=== PATIENT | male | born 1985 | race African-American/Black ===

== ENCOUNTER 2023-10-20 11:29 | Emergency (ER) | payer OTHER ==
[2023-10-20] MEDS ORDERED: KETOROLAC 30 MG/ML INJ ONE (12:13)
--- NOTE | 2023-10-20 12:16 | RAD REPORT ---
EXAM DESCRIPTION: Monica Single View10/20/2023 11:59 am CLINICAL HISTORY: Chest pain COMPARISON: none FINDINGS: The lungs appear clear of acute infiltrate. The heart is normal size IMPRESSION: No acute abnormalities displayed
[2023-10-20 12:19] LABS: Absolute Eosinophils 0.1 K/uL (0-0.5); Absolute Monocytes 0.4 K/uL (0.1-1.3); Eosinophils % 2.2 % (0-4.4); Hematocrit 37.9 % (39.6-49.0); Hemoglobin 12.5 g/dL (13.6-17.9); Lymphocytes % 43.4 % (15.3-44.8); MCHC 32.9 g/dL (32.0-36.0); MCV 100.3 fL (80-100); MPV 9.4 fL (7.6-11.3); Monocytes % 8.1 % (3.3-12.3); Neutrophils % 45.3 % (41.7-73.7); Platelets 166 thou/uL (152-406); RBC Red Blood Cell Count 3.78 M/uL (4.33-5.43); Red Cell Distribution Width 12.8 % (12.1-15.2)
[2023-10-20 12:36] LABS: Albumin/Globulin Ratio 1.3 (1.1-1.8); Anion Gap 4.1 mEq/L (5.0-15.0); Bilirubin Direct 0.2 mg/dL (0-0.2); Bilirubin Indirect, Calculated 0.2 mg/dL (0.2-0.8); Bilirubin Total 0.4 mg/dL (0.2-1.0); Magnesium 2.2 mg/dL (1.6-2.4); Potassium 4.1 mEq/L (3.5-5.1); Troponin High Sensitivity 8.5 pg/mL (<58.9)
--- NOTE | 2023-10-20 12:39 | ER ---
Nurse's Notes [facility] Name: Morgan Cormier Age: 38 yrs Sex: Male : 1985 Arrival Date: 10/20/2023 Time: 11:29 Bed 14 Private MD: Diagnosis: Chest pain, unspecified Presentation: 10/19 11:41 Chief complaint: Patient states: "I've had left sided chest pain since last night. It's mb9 been getting worse.". Coronavirus screen: At this time, the client does not indicate any symptoms associated with coronavirus-19. Ebola Screen: No symptoms or risks identified at this time. Initial Sepsis Screen: Does the patient meet any 2 criteria? No. Patient's initial sepsis screen is negative. Does the patient have a suspected source of infection? No. Patient's initial sepsis screen is negative. Risk Assessment: Do you want to hurt yourself or someone else? Patient reports no desire to harm self or others. Onset of symptoms was October 20, 2023. 11:41 Method Of Arrival: Ambulatory 9 11:41 Acuity: ALECIA 2 mb9 Triage Assessment: 11:42 General: Appears in no apparent distress. Behavior is calm, cooperative. Pain: mb9 Complains of pain in chest. Cardiovascular: Reports chest pain, Patient's skin is warm and dry. Historical: - Allergies: 11:42 No Known Allergies; mb9 - Home Meds: 11:42 None [Active]; mb9 - PMHx: 11:42 None; mb9 - PSHx: 11:42 None; mb9 - Immunization history:: Adult Immunizations up to date. - Infectious Disease History:: Denies. - Social history:: Smoking status: Patient denies any tobacco usage or history of. Screenin:21 [facility] ED Fall Risk Assessment (Adult) History of falling in the last 3 months, me1 including since admission No falls in past 3 months (0 pts) Confusion or Disorientation No (0 pts) Intoxicated or Sedated No (0 pts) Impaired Gait No (0 pts) Mobility Assist Device Used No (0 pt) Altered Elimination No (0 pt) Score/Fall Risk Level 0 - 2 = Low Risk Maintained a safe environment, Provided non-skid footwear, Hourly rounding (assess needs \\T\\ fall precautionary measures) done. Abuse screen: Denies threats or abuse. Nutritional screening: No deficits noted. Tuberculosis screening: No symptoms or risk factors identified. Assessment: 12:21 General: Appears uncomfortable, well groomed, well developed, well nourished, Behavior me1 is calm, cooperative, appropriate for age, Reports left sided chest pain that radiates up the neck that started last night. Pain: Complains of pain in chest Pain radiates to neck Pain currently is 9 out of 10 on a pain scale. Quality of pain is described as sharp, Pain began 1 day ago. Is continuous. Neuro: Level of Consciousness is awake, alert, obeys commands, Oriented to person, place, time, situation, Appropriate for age. Cardiovascular: Capillary refill < 3 seconds Patient's skin is warm and dry. Respiratory: Airway is patent Respiratory effort is even, unlabored, Respiratory pattern is regular, symmetrical. GI: No signs and/or symptoms were reported involving the gastrointestinal system. : No signs and/or symptoms were reported regarding the genitourinary system. EENT: No signs and/or symptoms were reported regarding the EENT system. Derm: Skin is intact, is healthy with good turgor, Skin is pink, warm \\T\\ dry. Musculoskeletal: No signs and/or symptoms reported regarding the musculoskeletal system. Vital Signs: 11:41 BP 122 / 86; Pulse 74; Resp 16; Temp 98; Pulse Ox 100% ; Weight 70.31 kg; Height 6 ft. mb9 1 in. ; Pain 9/10; 12:25 BP 129 / 84; Pulse 57; Resp 15; Pulse Ox 98% on R/A; me1 13:06 BP 126 / 90; Pulse 58; Resp 16; Temp 98.1(O); Pulse Ox 95% ; Pain 0/10; me1 11:41 Body Mass Index 20.45 (70.31 kg, 185.42 cm) mb9 11:41 Pain Scale: Adult mb9 13:06 Pain Scale: Adult me1 ED Course: 11:32 Patient arrived in ED. ra3 11:36 Matthew Barber MD is Attending Physician. sp3 11:38 EKG done, by ED staff, reviewed by Matthew Barber MD. mb9 11:41 Triage completed. mb9 11:42 Arm band placed on. mb9 12:01 XRAY Chest (1 view) In Process Unspecified. EDMS 12:10 Orly Cui, RN is Primary Nurse. me1 12:11 Initial lab(s) drawn, by me, sent to lab. Inserted saline lock: 20 gauge in right wv1 antecubital area, using aseptic technique. 12:11 Basic Metabolic Panel Sent. me1 12:11 CBC with Diff Sent. me1 12:11 D-Dimer Sent. me1 12:11 LFT's Sent. me1 12:11 Magnesium Sent. me1 12:11 NT PRO-BNP Sent. me1 12:11 Troponin HS Sent. me1 12:21 No provider procedures requiring assistance completed. O2 via room air. me1 12:21 Patient has correct armband on for positive identification. Bed in low position. Call me1 light in reach. Side rails up X 1. Provided Education on: POC. Verbalized understanding. . Client placed on continuous cardiac and pulse oximetry monitoring. NIBP monitoring applied. patient monitor on. Pulse ox on. NIBP on. 13:07 IV discontinued, intact, bleeding controlled, No redness/swelling at site. Pressure wv1 dressing applied. Administered Medications: 12:18 Drug: Ketorolac IVP 30 mg IVP once Route: IVP; Site: right antecubital; wv1 13:01 Follow up: Response: No adverse reaction; Pain is decreased me1 Medication: 12:21 VIS not applicable for this client. wv1 Outcome: 12:39 Discharge ordered by . sp3 13:07 Discharged to home ambulatory, wv1 13:07 Condition: stable 13:07 Discharge instructions given to patient, Instructed on discharge instructions, follow up and referral plans. Demonstrated understanding of instructions, follow-up care, 13:08 Patient left the ED. wv1 Signatures: Dispatcher [employer] Matthew Greco MD MD sp3 Yolanda Staley RN RN mb9 Orly Cui, RN RN me1 Cate Bingham ra3
--- NOTE | 2023-10-20 12:39 | EDPHYS ---
Physician Documentation [facility] Name: Morgan Cormier Age: 38 yrs Sex: Male : 1985 Arrival Date: 10/20/2023 Time: 11:29 Bed 14 Private MD: ED Physician Matthew Barber HPI: 10/19 11:53 This 38 yrs old Black Male presents to ER via Ambulatory with complaints of Chest Pain. sp3 11:53 38-year-old male with no significant past medical history presents with left-sided sp3 chest pain since yesterday while at work. Patient states that he "works out a lot". Pain is radiating into his shoulder and is worse when he moves. He denies headache, jaw pain, left arm pain or tingling, shortness of breath, back pain, abdominal pain, vomiting, diarrhea, nausea, syncope, near syncope, or any other signs or symptoms on ROS at this time.. Historical: - Allergies: 11:42 No Known Allergies; mb9 - Home Meds: 11:42 None [Active]; mb9 - PMHx: 11:42 None; mb9 - PSHx: 11:42 None; mb9 - Immunization history:: Adult Immunizations up to date. - Infectious Disease History:: Denies. - Social history:: Smoking status: Patient denies any tobacco usage or history of. ROS: 11:53 Constitutional: Negative for fever, chills, and weight loss, Eyes: Negative for injury, sp3 pain, redness, and discharge, ENT: Negative for injury, pain, and discharge, Neck: Negative for injury, pain, and swelling, Respiratory: Negative for shortness of breath, cough, wheezing, and pleuritic chest pain, Abdomen/GI: Negative for abdominal pain, nausea, vomiting, diarrhea, and constipation, Back: Negative for injury and pain, MS/Extremity: Negative for injury and deformity, Skin: Negative for injury, rash, and discoloration, Neuro: Negative for headache, weakness, numbness, tingling, and seizure, Psych: Negative for depression, anxiety, suicide ideation, homicidal ideation, and hallucinations, Allergy/Immunology: Negative for hives, rash, and allergies, Endocrine: Negative for neck swelling, polydipsia, polyuria, polyphagia, and marked weight changes, 11:53 All other systems are negative, Exam: 11:54 Constitutional: This is a well developed, well nourished patient who is awake, alert, sp3 and in no acute distress. Head/Face: Normocephalic, atraumatic. Eyes: Pupils equal round and reactive to light, extra-ocular motions intact. Lids and lashes normal. Conjunctiva and sclera are non-icteric and not injected. Cornea within normal limits. Periorbital areas with no swelling, redness, or edema. Neck: Trachea midline, no thyromegaly or masses palpated, and no cervical lymphadenopathy. Supple, full range of motion without nuchal rigidity, or vertebral point tenderness. No Meningismus. Cardiovascular: Regular rate and rhythm with a normal S1 and S2. No gallops, murmurs, or rubs. Normal PMI, no JVD. No pulse deficits. Respiratory: Lungs have equal breath sounds bilaterally, clear to auscultation and percussion. No rales, rhonchi or wheezes noted. No increased work of breathing, no retractions or nasal flaring. Abdomen/GI: Soft, non-tender, with normal bowel sounds. No distension or tympany. No guarding or rebound. No evidence of tenderness throughout. Back: No spinal tenderness. No costovertebral tenderness. Full range of motion. Skin: Warm, dry with normal turgor. Normal color with no rashes, no lesions, and no evidence of cellulitis. MS/ Extremity: Pulses equal, no cyanosis. Neurovascular intact. Full, normal range of motion. Neuro: Awake and alert, GCS 15, oriented to person, place, time, and situation. Cranial nerves II-XII grossly intact. Motor strength 5/5 in all extremities. Sensory grossly intact. Cerebellar exam normal. Normal gait. Psych: Awake, alert, with orientation to person, place and time. Behavior, mood, and affect are within normal limits. 11:54 Chest/axilla: Pain is reproducible in the left chest.. 11:54 ECG was reviewed by the Attending Physician. EKG demonstrates normal sinus rhythm at 60 sp3 bpm with normal intervals, normal QRS, normal axis, J-point elevation without significant ST's ST changes. Vital Signs: 11:41 BP 122 / 86; Pulse 74; Resp 16; Temp 98; Pulse Ox 100% ; Weight 70.31 kg; Height 6 ft. mb9 1 in. ; Pain 9/10; 12:25 BP 129 / 84; Pulse 57; Resp 15; Pulse Ox 98% on R/A; me1 13:06 BP 126 / 90; Pulse 58; Resp 16; Temp 98.1(O); Pulse Ox 95% ; Pain 0/10; me1 11:41 Body Mass Index 20.45 (70.31 kg, 185.42 cm) mb9 11:41 Pain Scale: Adult mb9 13:06 Pain Scale: Adult me1 MDM: 11:39 Patient medically screened. sp3 11:54 Data reviewed: vital signs, nurses notes, lab test result(s), EKG, radiologic studies. sp3 11:54 ED course: 38-year-old male with no past medical history with probable musculoskeletal sp3 chest pain from working out. I am not highly suspicious for acute coronary syndrome, PE, TAD, or any other critical pathology. Workup will include EKG which does not show any significant findings, chest x-ray and laboratory values including troponin and D-dimer. Given the length of his history single troponin should rule patient out. If workup is negative we will safely discharge him home with PCP follow-up as needed.. 12:39 ED course: All workup is negative including troponin and D-dimer. We will safely sp3 discharge patient home at this time.. 10/19 11:39 Order name: Basic Metabolic Panel; Complete Time: 12:38 3 10/19 11:39 Order name: CBC with Diff; Complete Time: 12:38 3 10/19 11:39 Order name: D-Dimer; Complete Time: 12:38 3 10/19 11:39 Order name: LFT's; Complete Time: 12:38 3 10/19 11:39 Order name: Magnesium; Complete Time: 12:38 3 10/19 11:39 Order name: NT PRO-BNP; Complete Time: 12:38 3 10/19 11:39 Order name: Troponin HS; Complete Time: 12:38 3 10/19 11:39 Order name: XRAY Chest (1 view); Complete Time: 12:20 3 10/19 11:39 Order name: Cardiac monitoring; Complete Time: 12:11 3 10/19 11:39 Order name: EKG - Nurse/Tech; Complete Time: 12:11 sp3 10/19 11:39 Order name: IV Saline Lock; Complete Time: 12:11 sp3 10/19 11:39 Order name: Labs collected and sent; Complete Time: 12:11 sp3 10/19 11:39 Order name: O2 Per Protocol; Complete Time: 12:11 sp3 10/19 11:39 Order name: O2 Sat Monitoring; Complete Time: 12:11 sp3 Administered Medications: 12:18 Drug: Ketorolac IVP 30 mg IVP once Route: IVP; Site: right antecubital; me1 13:01 Follow up: Response: No adverse reaction; Pain is decreased me1 Disposition Summary: 10/20/23 12:39 Discharge Ordered Notes: Location: Home sp3 Condition: Stable sp3 Diagnosis - Chest pain, unspecified sp3 Followup: sp3 - With: Private Physician - When: Upon discharge from the Emergency Department - Reason: Continuance of care Discharge Instructions: - Discharge Summary Sheet sp3 - Nonspecific Chest Pain, Adult sp3 Forms: - Medication Reconciliation Form sp3 - Thank You Letter sp3 - Antibiotic Education sp3 - Prescription Opioid Use sp3 - Patient Portal Instructions sp3 - Leadership Thank You Letter sp3 Signatures: Dispatcher [employer] Matthew Greco MD MD sp3 Yolanda Staley RN RN mb9 Orly Cui RN RN me1
[2023-10-21 02:37] VITALS: BP 126/90; TEMP 98.1; O2SAT 95
== END 2023-10-20 13:08 | disposition home or self-care (01) ==
LOC: ER 11:29
DX: R07.9 Chest pain, unspecified (principal)
CPT/HCPCS: 36415; 71045; 80048; 80076; 83735; 83880; 84484; 85025; 85379; 93005; 96374; 99285

== ENCOUNTER 2025-02-12 19:55 | Emergency (ER) | payer OTHER ==
--- OUTSIDE RECORDS SUMMARY | 2025-02-12 19:58 | XMS REPORT | Continuity of Care Document ---
Author Name Unknown Address [address] [facility] [address] [place] [address] [facility] Address 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 Ordering Clinician Indication Dosage Frequency Signature (SIG) Comments Components Source CETIRIZINE 10MG 11-09 00:00: 00 Yes [id number] Spencer Barrera CETIRIZINE 10MG 09-14 00:00: 00 Yes [id number] Spencer F Bruce azithromyci n 250 mg tablet 12-15 00:00: 00 Yes mg Spencer F Bruce azithromyci n 250 mg tablet 09-02 00:00: 00 Yes 4mg Spencer Mitch Barrera Vital Signs Vital Name Observation Time Observation Value Comments S ourcesar BP Systolic 2024-11-29 10:46:00 125 mm[Hg] Step hen F Bruce BP Diastolic 2024-11-29 10:46:00 76 mm[Hg] Cristian phen F Bruce Weight Measured 2024-11-29 10:46:00 161.60 pounds Spencer F Bruce Height Measured 2024-11-29 10:46:00 74.00 inches Spencer F Bruce Body Temperature 2024-11-29 10:46:00 98.20 degrees Spencer F Bruce Heart Rate 2024-11-29 10:46:00 62.00 /min Angie en F Bruce Respiratory Rate 2024-11-29 10:46:00 19.00 /min Spencer F Bruce Heart Rate 2024-10-18 11:03:00 95.00 /min Angie en F Bruce Respiratory Rate 2024-10-18 11:03:00 18.00 /min Spencer F Bruce BP Systolic 2024-10-18 11:03:00 112 mm[Hg] Step hen F Bruce BP Diastolic 2024-10-18 11:03:00 83 mm[Hg] Cristian phen F Bruce Weight Measured 2024-10-18 11:03:00 153.00 pounds Spencer F Bruce Height Measured 2024-10-18 11:03:00 74.00 inches Spencer F Bruce Body Temperature 2024-10-18 11:03:00 98.30 degrees Spencer F Bruce BP Systolic 2024-01-20 16:26:00 100 mm[Hg] Step hen F Bruce BP Diastolic 2024-01-20 16:26:00 62 mm[Hg] Cristian phen F Bruce Weight Measured 2024-01-20 16:26:00 160.00 pounds Spencer F Bruce Height Measured 2024-01-20 16:26:00 74.00 inches Spencer F Bruce Body Temperature 2024-01-20 16:26:00 98.20 degrees Spencer F Bruce Heart Rate 2024-01-20 16:26:00 61.00 /min Angie en F Bruce Respiratory Rate 2024-01-20 16:26:00 18.00 /min Spencer F Bruce BP Systolic 2018-09-29 17:12:00 115 mm[Hg] Step hen F Bruce BP Diastolic 2018-09-29 17:12:00 67 mm[Hg] Cristian phen F Bruce Weight Measured 2018-09-29 17:12:00 157.40 pounds Spencer F Bruce Height Measured 2018-09-29 17:12:00 74.00 inches Spencer F Bruce Body Temperature 2018-09-29 17:12:00 98.10 degrees Spencer F Bruce Heart Rate 2018-09-29 17:12:00 68.00 /min Angie en F Bruce Respiratory Rate 2018-09-29 17:12:00 18.00 /min Spencer F Bruce BP Systolic 2016-12-15 14:46:00 124 mm[Hg] Step hen F Bruce BP Diastolic 2016-12-15 14:46:00 74 mm[Hg] Cristian phen F Bruce Weight Measured 2016-12-15 14:46:00 163.60 pounds Spencer F Bruce Height Measured 2016-12-15 14:46:00 74.00 inches Spencer F Bruce Body Temperature 2016-12-15 14:46:00 98.40 degrees Spencer F Bruce Heart Rate 2016-12-15 14:46:00 65.00 /min Angie en F Bruce Respiratory Rate 2016-12-15 14:46:00 16.00 /min Spencer F Bruce BP Systolic 2015-08-19 15:40:00 149 mm[Hg] Step hen F Bruce BP Diastolic 2015-08-19 15:40:00 80 mm[Hg] Cristian phen F Bruce Weight Measured 2015-08-19 15:40:00 161.80 pounds Spencer F Bruce Height Measured 2015-08-19 15:40:00 73.23 inches Spencer F Bruce Body Temperature 2015-08-19 15:40:00 98.40 degrees Spencer F Bruce Heart Rate 2015-08-19 15:40:00 74.00 /min Angie en F Bruce Respiratory Rate 2015-08-19 15:40:00 15.00 /min Spencer F Bruce BP Systolic 2015-08-19 15:34:00 149 mm[Hg] Step hen F Bruce BP Diastolic 2015-08-19 15:34:00 80 mm[Hg] Cristian phen F Bruce Weight Measured 2015-08-19 15:34:00 161.80 pounds Spencer F Bruce Height Measured 2015-08-19 15:34:00 73.23 inches Spencer F Bruce Body Temperature 2015-08-19 15:34:00 98.40 degrees Spencer F Bruce Heart Rate 2015-08-19 15:34:00 74.00 /min Angie en F Bruce Respiratory Rate 2015-08-19 15:34:00 15.00 /min Spencer F Bruce Encounters Start Date/Time End Date/Time Encounter Type Admission Type Attending [facility] Care Department Encounter ID Source 2024-11-29 10:45:35 2024-11-29 10:45:35 Outpatient [facility] [id number] Spencer Barrera 2024-11-29 00:00:00 2024-11-29 00:00:00 Outpatient Visit [facility] [id number] Spencer Barrera 2024-10-18 10:56:03 2024-10-18 10:56:03 Outpatient [facility] [id number] Spencer Barrera 2024-10-18 00:00:00 2024-10-18 00:00:00 Outpatient Visit [facility] [id number] Spencer Barrera 2024-01-20 16:26:19 2024-01-20 16:26:19 Outpatient [facility] [id number] Spencer Barrera 2024-01-20 00:00:00 2024-01-20 00:00:00 Outpatient Visit [facility] [id number] Spencer Barrera Results Test Description Test Time Test Comments Results Result Co mments Source Spencer BarreraCOMPREHENSIVE METABOLIC [id number] 00:00:00* Test Item Value Reference Range Interpretation Comme nts GLUCOSE (test code = 2345-7) 122 mg/dL UREA NITROGEN (BUN) (test code = 3094-0) 12 mg/dL CREATININE (test code = 2160-0) 1.18 mg/dL EGFR (test code = 53961-5) 80 mL/min/1.73m2 BUN/CREATININE RATIO (test code = 3097-3) SEE NOTE: (calc) SODIUM (test code = 2951-2) 142 mmol/L POTASSIUM (test code = 2823-3) 4.5 mmol/L CHLORIDE (test code = 2075-0) 103 mmol/L CARBON DIOXIDE (test code = 2027-9) 25 mmol/L CALCIUM (test code = 76852-7) 9.8 mg/dL PROTEIN, TOTAL (test code = 2885-2) 7.1 g/dL ALBUMIN (test code = 1751-7) 4.7 g/dL GLOBULIN (test code = 22272-9) 2.4 g/dL(calc) ALBUMIN/GLOBULIN RATIO (test code = 1759-0) 2.0 (calc) BILIRUBIN, TOTAL (test code = 1975-2) 0.4 mg/dL ALKALINE PHOSPHATASE (test code = 6768-6) 76 U/L AST (test code = 1920-8) 21 U/L ALT (test code = 1742-6) 18 U/L Spencer BarreraHEMOGLOBIN [id number] 00:00:00* Test Item Value Reference Range Interpretation Comme nts HEMOGLOBIN A1c (test code = 4548-4) 5.9 % Spencer BarreraLIPID [id number] 00:00:00* Test Item Value Reference Range Interpretation Comme nts CHOLESTEROL, TOTAL (test cod e = 2093-3) 195 mg/dL HDL CHOLESTEROL (test code = 2085-9) 88 mg/dL TRIGLYCERIDES (test code = 2571-8) 40 mg/dL LDL-CHOLESTEROL (test code = 34504-6) 95 mg/dL(calc) CHOL/HDLC RATIO (test code = 9830-1) 2.2 (calc) NON HDL CHOLESTEROL (test code = 29565-3) 107 mg/dL(calc) Specner SandovalAMYDIA, AMPLIFIED, [id number] 00:00:00* Test Item Value Reference Range Interpretation Comme nts CHLAMYDIA, TMA (test code = 25606) NEGATIVE Spencer BarreraGC, AMPLIFIED, [id number] 00:00:00* Test Item Value Reference Range Interpretation Comme nts GONORRHEA, TMA (test code = 81490) NEGATIVE Spencer BarreraCULTURE, [id number] 00:00:00* Test Item Value Reference Range Interpretation Comme nts CULTURE, URINE (test code = 85864) SPECIMEN NUMBER: [id number] Spencer BarreraCHLAMYDIA, AMPLIFIED, [id number] 00:00:00* Test Item Value Reference Range Interpretation Comme nts CHLAMYDIA, TMA (test code = 21540) NEGATIVE Spencer BarreraGC, AMPLIFIED, [id number] 00:00:00* Test Item Value Reference Range Interpretation Comme nts GONORRHEA, TMA (test code = 92755) NEGATIVE Spencer BarreraCULTURE, [id number] 00:00:00* Test Item Value Reference Range Interpretation Comme nts CULTURE, URINE (test code = 31492) SPECIMEN NUMBER: [id number] Spencer BarreraCHLAMYDIA, AMPLIFIED, [id number] 00:00:00* Test Item Value Reference Range Interpretation Comme nts CHLAMYDIA, TMA (test code = 48548) NEGATIVE Spencer BarreraGC, AMPLIFIED, [id number] 00:00:00* Test Item Value Reference Range Interpretation Comme nts GONORRHEA, TMA (test code = 37064) NEGATIVE Spencer BarreraCULTURE, [id number] 00:00:00* Test Item Value Reference Range Interpretation Comme nts CULTURE, URINE (test code = 25059) SPECIMEN NUMBER: [id number] Spencer BarreraGC, AMPLIFIED, [id number] 00:00:00* Test Item Value Reference Range Interpretation Comme nts GONORRHEA, TMA (test code = 74479) NEGATIVE Spnecer BarreraCHLAMYDIA, AMPLIFIED, [id number] 00:00:00* Test Item Value Reference Range Interpretation Comme nts CHLAMYDIA, TMA (test code = 38001) POSITIVE Spencer BarreraGC, AMPLIFIED, [id number] 00:00:00* Test Item Value Reference Range Interpretation Comme nts GONORRHEA, TMA (test code = 84243) NEGATIVE Spencer BarreraCHLAMYDIA, AMPLIFIED, [id number] 00:00:00* Test Item Value Reference Range Interpretation Comme nts CHLAMYDIA, TMA (test code = 03577) POSITIVE Spencer BarreraGC, AMPLIFIED, [id number] 00:00:00* Test Item Value Reference Range Interpretation Comme nts GONORRHEA, TMA (test code = 09282) NEGATIVE Spencer BarreraCHLAMYDIA, AMPLIFIED, [id number] 00:00:00* Test Item Value Reference Range Interpretation Comme nts CHLAMYDIA, TMA (test code = 45342) POSITIVE Spencer BarreraHIV AB/AG COMBO RFLX [id number] 00:00:00* Test Item Value Reference Range Interpretation Comme nts HIV AB/AG COMBO RFLX CONF (t est code = 3514) NON-REACTIVE Spencer [id number] 00:00:00* Test Item Value Reference Range Interpretation Comme nts RPR RESULT (test code = 3501) NON-REACTIVE RPR TITER (test code = 3500) NOT INDIC. TITER Spencer BarreraACUTE HEPATITIS [id number] 00:00:00* Test Item Value Reference Range Interpretation Comme nts HEPATITIS A IgM (test code = 61027) NON-REACTIVE HEPATITIS B CORE IgM (test c ode = 4644) NON-REACTIVE HEPATITIS B SURF AG (test co de = 2739) NON-REACTIVE HEPATITIS C ANTIBODY (test c ode = 4675) NON-REACTIVE INTERPRETATION HEPATITIS A: (test code = 2552) (NOTE) INTERPRETATION HEPATITIS B: (test code = 84392) (NOTE) INTERPRETATION HEPATITIS C: (test code = 01540) (NOTE) Spencer Meyer AustinHIV AB/AG COMBO RFLX [id number] 00:00:00* Test Item Value Reference Range Interpretation Comme nts HIV AB/AG COMBO RFLX CONF (t est code = 3514) NON-REACTIVE Spencer [id number] 00:00:00* Test Item Value Reference Range Interpretation Comme nts RPR RESULT (test code = 3501) NON-REACTIVE RPR TITER (test code = 3500) NOT INDIC. TITER Spencer BarreraACUTE HEPATITIS [id number] 00:00:00* Test Item Value Reference Range Interpretation Comme nts HEPATITIS A IgM (test code = 28900) NON-REACTIVE HEPATITIS B CORE IgM (test c ode = 4644) NON-REACTIVE HEPATITIS B SURF AG (test co de = 2739) NON-REACTIVE HEPATITIS C ANTIBODY (test c ode = 4675) NON-REACTIVE INTERPRETATION HEPATITIS A: (test code = 2552) (NOTE) INTERPRETATION HEPATITIS B: (test code = 55568) (NOTE) INTERPRETATION HEPATITIS C: (test code = 82998) (NOTE) Spencer Meyer AustinHIV AB/AG COMBO RFLX [id number] 00:00:00* Test Item Value Reference Range Interpretation Comme nts HIV AB/AG COMBO RFLX CONF (t est code = 3514) NON-REACTIVE Spencer Meyer [id number] 00:00:00* Test Item Value Reference Range Interpretation Comme nts RPR RESULT (test code = 3501) NON-REACTIVE RPR TITER (test code = 3500) NOT INDIC. TITER Spencer BarreraACUTE HEPATITIS [id number] 00:00:00* Test Item Value Reference Range Interpretation Comme nts HEPATITIS A IgM (test code = 88935) NON-REACTIVE HEPATITIS B CORE IgM (test c ode = 4644) NON-REACTIVE HEPATITIS B SURF AG (test co de = 2739) NON-REACTIVE HEPATITIS C ANTIBODY (test c ode = 4675) NON-REACTIVE INTERPRETATION HEPATITIS A: (test code = 2552) (NOTE) INTERPRETATION HEPATITIS B: (test code = 49327) (NOTE) INTERPRETATION HEPATITIS C: (test code = 74803) (NOTE) Spencer Barrera Notes Date/Time Note Provider Source Spencer Barrera [facility]2025-04-17 00:00:00 Spencer Howard [facility]2024-07-19 00:00:00 Spencer Howard [facility]
[2025-02-12] MEDS ORDERED: CEPHALEXIN 250 MG CAP ONE (20:50)
[2025-02-12] MEDS ORDERED: KETOROLAC 10 MG TAB ONE (20:50)
[2025-02-12] MEDS ORDERED: LIDOCAINE 1% 20 ML MDV ONE ×2 (20:50→21:04)
[2025-02-12] MEDS ORDERED: SMZ./TMP. 800/160 MG TABLET ONE (20:51)
[2025-02-12] MEDS ORDERED: ONDANSETRON 4 MG (ODT) TAB ONE (20:51)
[2025-02-12] MEDS ORDERED: TRAMADOL HCL 50 MG TAB ONE (20:52)
[2025-02-12 20:53] LABS: Hematocrit 41.5 % (39.6-49.0); Hemoglobin 14.2 g/dL (13.6-17.9); MCV 97.4 fL (80-100); RBC Red Blood Cell Count 4.27 M/uL (4.33-5.43); White Blood Count 5.00 thou/uL (4.3-10.9)
[2025-02-12 20:54] LABS: Absolute Lymphocytes (CBC) 1.9 K/uL (0.7-4.9); MCH 33.4 pg (27.0-35.0); MCHC 34.3 g/dL (32.0-36.0); MPV 9.9 fL (7.6-11.3); Nucleated RBC Absolute Count 0.0 (0-0); Nucleated Red Blood Cells % 0.1 % (0-0)
[2025-02-12 21:08] LABS: Anion Gap 5.9 mEq/L (5.0-15.0); BUN Blood Urea Nitrogen 15.0 mg/dL (7-18); Glucose Level 107.0 mg/dL (74-106); Potassium 3.9 mEq/L (3.5-5.1)
--- NOTE | 2025-02-12 22:02 | EDPHYS ---
Physician Documentation [facility] Name: Morgan Cormier Age: 39 yrs Sex: Male : 1985 Arrival Date: 02/12/2025 Time: 19:55 Bed 17 Private MD: ED Physician Rush Rivero HPI: 02/12 20:06 This 39 yrs old Black Male presents to ER via Unassigned with complaints of Wound Check sp4 - left foot. 22:05 Patient presents with acute abscess of the left foot developing in the last 7 days.. sp4 Historical: - Allergies: 20:17 No Known Allergies; al5 - PMHx: 20:17 None; al5 - PSHx: 20:17 None; al5 - Immunization history:: Adult Immunizations up to date. - Infectious Disease History:: Denies. - Social history:: Smoking status: Patient denies any tobacco usage or history of. - Family history:: not pertinent. ROS: 22:05 Constitutional: Negative for fever, chills, and weight loss, positive for left foot sp4 abscess with tenderness pain swelling and purulent induration 22:05 All other systems are negative, Exam: 22:05 Constitutional: This is a well developed, well nourished patient who is awake, alert, sp4 and in no acute distress. Head/Face: Normocephalic, atraumatic. Eyes: Pupils equal round and reactive to light, extra-ocular motions intact. Lids and lashes normal. Conjunctiva and sclera are not injected. Cornea within normal limits. Periorbital areas with no swelling, redness, or edema. ENT: Nares patent. No nasal discharge, no septal abnormalities noted. Tympanic membranes are normal and external auditory canals are clear. Oropharynx with no redness, swelling, or masses, exudates, or evidence of obstruction, uvula midline. Mucous membranes moist. Neck: Trachea midline, no thyromegaly or masses palpated, and no cervical lymphadenopathy. Supple, full range of motion without nuchal rigidity, or vertebral point tenderness. Chest/axilla: Normal chest wall appearance and motion. Nontender with no deformity. No lesions are appreciated. Cardiovascular: Regular rate and rhythm with a normal S1 and S2. No gallops, murmurs, or rubs. No pulse deficits. Respiratory: Lungs have equal breath sounds bilaterally, clear to auscultation and percussion. No rales, rhonchi or wheezes noted. No increased work of breathing, no retractions or nasal flaring. Abdomen/GI: Soft, with normal bowel sounds. No distension or tympany. No guarding or rebound. No evidence of tenderness throughout. Back: No spinal tenderness. No costovertebral tenderness. Skin: Warm, dry with normal turgor. Normal color with no rashes, no lesions, and no evidence of cellulitis. MS/ Extremity: Pulses equal, no cyanosis. Neurovascular intact. Full, normal range of motion. Left foot has signs of developing abscess with purulent induration webspace between toes 4 and 5. Significant swelling and tenderness on exam at the site of an abscess Neuro: Awake and alert, GCS 15, oriented to person, place, time, and situation. Cranial nerves II-XII grossly intact. Motor strength 5/5 in all extremities. Sensory grossly intact. Psych: Awake, alert, with orientation to person, place and time. Behavior, mood, and affect are within normal limits Vital Signs: 20:16 BP 120 / 84; Pulse 72; Resp 16; Temp 97.6; Pulse Ox 99% on R/A; Weight 74.84 kg; Height al5 6 ft. 2 in. ; 21:00 BP 144 / 100; Pulse 69; Resp 18; Pulse Ox 99% ; rg5 20:16 Body Mass Index 21.18 (74.84 kg, 187.96 cm) al5 Lucas Coma Score: 22:05 Eye Response: spontaneous(4). Motor Response: obeys commands(6). Verbal Response: sp4 oriented(5). Total: 15. Procedures: 21:55 I \T\ D: Incision and drainage was performed for an abscess of the left left fourth toe sp4 -left fourth toe fifth toe webspace abscess Prepped with Betadine, alcohol, Anesthetized with 20 ml's 1% Lidocaine. Incised with #11 blade. Drained moderate amount purulent fluid. bloody fluid. Dressing: sterile 4x4 gauze, Sterile dressing with Kerlix and 4 x 4's also with elastic bandage the patient tolerated the procedure well, Left foot 4th-5th toe webspace moderate abscess. MDM: 21:53 Differential diagnosis: cellulitis, Abscess , left foot abscess . sp4 22:01 Medical Screening Exam initiated sp4 22:06 Data reviewed: vital signs, nurses notes, lab test result(s), CBC, electrolytes. sp4 Consideration of Admission/Observation Escalation of care including admission/observation considered. ED course: Abscess was drained. Patient has no signs of diabetes. Advised follow-up at [facility] for oral Lamisil prescription for treatment of fungal nails . 02/12 20:30 Order name: CBC with Diff; Complete Time: 21:56 sp4 02/12 20:30 Order name: BMP; Complete Time: 21:56 sp4 02/12 20:31 Order name: Dressing - Wound; Complete Time: 21:20 sp4 02/12 20:31 Order name: Gloves, Sterile; Complete Time: 21:20 sp4 02/12 20:31 Order name: Setup Suture Tray; Complete Time: 21:20 sp4 Administered Medications: 20:58 Drug: Ondansetron PO 4 mg PO once Route: PO; rg5 21:26 Follow up: Response: No adverse reaction rg5 20:58 Drug: Trimethoprim-Sulfamethoxazole PO (160 mg-800 mg (DS) 1 tablet PO once Route: PO; rg5 21:26 Follow up: Response: No adverse reaction rg5 20:58 Drug: Cephalexin PO 500 mg PO once Route: PO; rg5 21:26 Follow up: Response: No adverse reaction rg5 20:59 Drug: Ketorolac PO 10 mg PO once Route: PO; rg5 21:27 Follow up: Response: No adverse reaction rg5 20:59 Drug: traMADol PO 100 mg PO once Route: PO; rg5 21:27 Follow up: Response: No adverse reaction rg5 21:38 Drug: Lidocaine Infiltration (1 %) 20 ml 20 ml Infiltration once; to bedside {Note: rg5 given by provider.} Volume: 20 ml; Route: Infiltration; 21:38 Drug: Lidocaine Infiltration (1 %) 20 ml 20 ml Infiltration once; to bedside {Note: rg5 given by provider.} Volume: 20 ml; Route: Infiltration; Disposition Summary: 02/12/25 22:01 Discharge Ordered Notes: Location: Home sp4 Problem: new sp4 Symptoms: have improved sp4 Condition: Stable sp4 Diagnosis - Cutaneous abscess of left foot sp4 - Acute abscess left foot 4th-5th toe webspace sp4 Followup: sp4 - With: Private Physician - When: 7 - 10 days - Reason: Recheck today's complaints Discharge Instructions: - Discharge Summary Sheet sp4 - Incision and Drainage, Care After sp4 Forms: - Patient Portal Instructions sp4 Prescriptions: - Cephalexin 500 mg Oral Capsule - take 1 capsule ORAL route every 12 hours for 10 days; 20 capsule; Refills: 0, sp4 Product Selection Permitted - Ibuprofen 800 mg Oral Tablet - take 1 tablet ORAL route every 8 hours As needed take with food; 30 tablet; sp4 Refills: 0, Product Selection Permitted - Tramadol 50 mg Oral tablet - take 1 tablet ORAL route every 8 hours as needed; 20 tablet; Refills: 0, sp4 Product Selection Permitted - Bactrim DS 800-160 mg Oral Tablet - take 1 tablet ORAL route every 12 hours for 10 days; 20 tablet; Refills: 0, sp4 Product Selection Permitted Signatures: Dispatcher [employer] EDMS Rush Rivero MD MD sp4 Amilcar Borrego RN RN rg5 Seema Hedrick RN RN al5 Corrections: (The following items were deleted from the chart) 20:31 20:31 CBC+H.LAB.BRZ ordered. EDMS EDMS 20:31 20:31 BASIC METABOLIC PANEL+C.LAB.BRZ ordered. EDMS EDMS
--- NOTE | 2025-02-12 22:02 | ER ---
Nurse's Notes [facility] Name: Morgan Cormier Age: 39 yrs Sex: Male : 1985 Arrival Date: 02/12/2025 Time: 19:55 Bed 17 Private MD: Diagnosis: Cutaneous abscess of left foot;Acute abscess left foot 4th-5th toe webspace Presentation: 02/12 20:16 Chief complaint: Patient states: patient has pain and swelling around webbing of L 4th al5 and 5th toe starting last , worse with walking. patient states there is a spider in his room and that it may be a spider bite. Coronavirus screen: At this time, the client does not indicate any symptoms associated with coronavirus-19. Ebola Screen: No symptoms or risks identified at this time. Initial Sepsis Screen: Does the patient meet any 2 criteria? No. Patient's initial sepsis screen is negative. Does the patient have a suspected source of infection? No. Patient's initial sepsis screen is negative. Risk Assessment: Do you want to hurt yourself or someone else? Patient reports no desire to harm self or others. Onset of symptoms was February 03, 2025. 20:16 Method Of Arrival: Ambulatory al5 20:16 Acuity: ALECIA 4 al5 Triage Assessment: 20:17 General: Appears in no apparent distress. uncomfortable, Behavior is calm, cooperative. al5 Pain: Complains of pain in left fourth toe and left fifth toe. EENT: No signs and/or symptoms were reported regarding the EENT system. Neuro: Level of Consciousness is awake, alert, obeys commands, Oriented to person, place, time, situation. Cardiovascular: Capillary refill < 3 seconds Patient's skin is warm and dry. Respiratory: Airway is patent Respiratory effort is even, unlabored, Respiratory pattern is regular, symmetrical. GI: No signs and/or symptoms were reported involving the gastrointestinal system. Abdomen is flat, non-distended. : No signs and/or symptoms were reported regarding the genitourinary system. Derm: redness and swelling toward webbing of L 4th and 5th toe. Musculoskeletal: Circulation, motion, and sensation intact. Range of motion: intact in all extremities. Historical: - Allergies: 20:17 No Known Allergies; al5 - PMHx: 20:17 None; al5 - PSHx: 20:17 None; al5 - Immunization history:: Adult Immunizations up to date. - Infectious Disease History:: Denies. - Social history:: Smoking status: Patient denies any tobacco usage or history of. - Family history:: not pertinent. Screenin:20 [facility] ED Fall Risk Assessment (Adult) History of falling in the last 3 months, rg5 including since admission No falls in past 3 months (0 pts) Confusion or Disorientation No (0 pts) Intoxicated or Sedated No (0 pts) Impaired Gait No (0 pts) Mobility Assist Device Used No (0 pt) Altered Elimination No (0 pt) Score/Fall Risk Level 0 - 2 = Low Risk Oriented to surroundings, Maintained a safe environment, Hourly rounding (assess needs \T\ fall precautionary measures) done. 20:20 Abuse screen: Denies threats or abuse. Nutritional screening: No deficits noted. rg5 Tuberculosis screening: No symptoms or risk factors identified. Assessment: 20:20 Reassessment: see triage assessment. al5 21:39 Reassessment: No changes from previously documented assessment. Patient and/or family rg5 updated on plan of care and expected duration. Pain level reassessed. Patient is alert, oriented x 3, equal unlabored respirations, skin warm/dry/pink. Vital Signs: 20:16 BP 120 / 84; Pulse 72; Resp 16; Temp 97.6; Pulse Ox 99% on R/A; Weight 74.84 kg; Height al5 6 ft. 2 in. ; 21:00 BP 144 / 100; Pulse 69; Resp 18; Pulse Ox 99% ; rg5 20:16 Body Mass Index 21.18 (74.84 kg, 187.96 cm) al5 Lucas Coma Score: 22:05 Eye Response: spontaneous(4). Motor Response: obeys commands(6). Verbal Response: sp4 oriented(5). Total: 15. ED Course: 20:02 Patient arrived in ED. im 20:06 Rush Rivero MD is Attending Physician. sp4 20:17 Triage completed. al5 20:19 Arm band placed on right wrist. Patient placed in the treatment room, in view of staff al5 members, on pulse oximetry. 20:20 Patient has correct armband on for positive identification. Bed in low position. Call rg5 light in reach. Side rails up X 1. Door closed. Noise minimized. 20:20 No provider procedures requiring assistance completed. Inserted saline lock: 20 gauge rg5 in right antecubital area, using aseptic technique. Blood collected. Flushed with 10 mL NS. Patient maintains SpO2 saturation greater than 95% on room air. 20:27 Amilcar Borrego, RN is Primary Nurse. rg5 22:00 IV discontinued, bleeding controlled, No redness/swelling at site. Pressure dressing rg5 applied. Administered Medications: 20:58 Drug: Ondansetron PO 4 mg PO once Route: PO; rg5 21:26 Follow up: Response: No adverse reaction rg5 20:58 Drug: Trimethoprim-Sulfamethoxazole PO (160 mg-800 mg (DS) 1 tablet PO once Route: PO; rg5 21:26 Follow up: Response: No adverse reaction rg5 20:58 Drug: Cephalexin PO 500 mg PO once Route: PO; rg5 21:26 Follow up: Response: No adverse reaction rg5 20:59 Drug: Ketorolac PO 10 mg PO once Route: PO; rg5 21:27 Follow up: Response: No adverse reaction rg5 20:59 Drug: traMADol PO 100 mg PO once Route: PO; rg5 21:27 Follow up: Response: No adverse reaction rg5 21:38 Drug: Lidocaine Infiltration (1 %) 20 ml 20 ml Infiltration once; to bedside {Note: rg5 given by provider.} Volume: 20 ml; Route: Infiltration; 21:38 Drug: Lidocaine Infiltration (1 %) 20 ml 20 ml Infiltration once; to bedside {Note: rg5 given by provider.} Volume: 20 ml; Route: Infiltration; Medication: 20:20 VIS not applicable for this client. rg5 Outcome: 22:00 Discharged to home ambulatory, rg5 22:00 Condition: stable 22:00 Discharge instructions given to patient, family, Instructed on discharge instructions, Demonstrated understanding of instructions, Prescriptions given X 4, 22:01 Discharge ordered by . sp4 22:12 Patient left the ED. rg5 Signatures: Rush Rivero MD MD sp4 Melissa Young Rommel, RN RN rg5 Seema Hedrick RN RN al5
[2025-02-12 22:53] VITALS: TEMP 97.6; O2SAT 99
[2025-02-12 22:55] VITALS: BP 144/100
== END 2025-02-12 22:12 | disposition home or self-care (01) ==
LOC: ER 19:55
PROC: 0H9NXZZ Drainage of Left Foot Skin, External Approach (ICD-10-PCS; principal; 2025-02-12)
DX: L02.612 Cutaneous abscess of left foot (principal)
CPT/HCPCS: 85025; 80048; 36415; 99284; 10060; Q0162; J2003 ×2